=== PATIENT | male | born 1945 | race Caucasian/White ===

== ENCOUNTER 2024-03-17 11:30 | Outpatient (CLI) | payer MEDICARE | END 2024-03-17 23:59 | disposition critical access hospital (66) | LOC: EMS 11:30 | DX: R47.81 Slurred speech (principal); R29.810 Facial weakness; R53.1 Weakness | CPT/HCPCS: A0425; A0429 ==

== ENCOUNTER 2024-03-17 11:57 | Emergency (ER) | payer MEDICARE ==
--- NOTE | 2024-03-17 12:02 | ED Physician Documentation ---
PD HPI FOCAL NEURO - Stated complaint Stated Complaint: CODE STROKE - History obtained from History obtained from: Patient, EMS PD PAST MEDICAL HISTORY - Past Medical History Cardiovascular: None Respiratory: None Neuro: None - Allergies Allergies/Adverse Reactions: Allergies Allergy/AdvReac Type Severity Reaction Status Date / Time Sulfa (Sulfonamide Allergy Unknown Verified 03/17/24 12:23 Antibiotics) PD ED PE NORMAL - Vitals Vital signs reviewed: Yes - General General: Alert and oriented X 3, Well developed/nourished - HEENT HEENT: Atraumatic - Neck Neck: Supple, no meningeal sign, No adenopathy, No JVD - Cardiac Cardiac: RRR, No murmur - Respiratory Respiratory: No respiratory distress, Clear bilaterally - Derm Derm: Normal color, Warm and dry - Extremities Extremities: No tenderness to palpate, Normal ROM s pain, No edema NIHSS - Level of Consciousness Level of consciousness: (0) Alert, Keenly responsive LOC Questions: (0) Answers both Q's correct LOC Commands: (0) Performs both correctly - Gaze Best Gaze: (0) Normal - Visual Visual: (0) No loss - Facial Palsy Facial Palsy: (2) Partial paralysis - Motor Arms (both separate) Motor Arm (right): (0) No drift Motor Arm (left): (1) Drift - Motor Legs (both separate) Motor Leg (right): (0) No drift Motor Leg (left): (1) Drift - Limb Ataxia Limb Ataxia: (2) Present in 2 limbs - Sensory Sensory: (1) Lwpf-nr-sdkxnjtj loss - Best Language Best Language: (0) No aphasia - Dysarthria Dysarthria: (1) Lckv-gg-lghepxfd dysarthria - Extinction and Inattention (formally neg Extinction and inattention: (0) No abnormality - Total Score/Results Total Score/Result: 8 Results - Vitals Vitals: Vital Signs - 24 hr 03/17/24 03/17/24 03/17/24 12:15 12:45 12:52 Temperature 36 C L Heart Rate 64 55 L 55 L Respiratory 18 15 18 Rate Blood Pressure 148/74 H 147/89 H 161/83 H O2 Saturation 99 98 99 03/17/24 03/17/24 03/17/24 13:22 13:52 13:59 Temperature Heart Rate 65 71 70 Respiratory 18 20 Rate Blood Pressure 175/87 H 149/81 H 142/76 H O2 Saturation 99 98 96 03/17/24 03/17/24 03/17/24 14:09 14:14 14:18 Temperature Heart Rate 75 80 82 Respiratory 12 Rate Blood Pressure 146/72 H 151/67 H 150/76 H O2 Saturation 96 98 97 03/17/24 03/17/24 03/17/24 14:24 14:29 14:33 Temperature Heart Rate 83 90 96 Respiratory Rate Blood Pressure 153/76 H 157/72 H 156/75 H O2 Saturation 97 97 96 03/17/24 03/17/24 03/17/24 14:40 14:49 14:54 Temperature Heart Rate 88 91 105 H Respiratory 25 H Rate Blood Pressure 132/69 H 154/72 H 171/86 H O2 Saturation 7 L 96 93 Oxygen O2 Source Room air - EKG (time done) 12:25 EKG releavant findings:: EKG personally interpreted by author of this note. Relevant findings are: Rate: Rate (enter#) (58) Rhythm: NSR [place]: Normal, RAD Intervals: Normal MS QRS: Normal Ischemia: Normal ST segments. No: ST elevation c/w ischemia, ST depression - Labs Labs: Laboratory Tests 03/17/24 03/17/24 03/17/24 12:20 12:20 12:20 WBC 4.3 L RBC 4.01 L Hgb 12.1 L Hct 36.3 L MCV 90.5 MCH 30.2 MCHC 33.3 RDW 12.7 Plt Count 188 MPV 9.0 Neut # (Auto) 2.7 Lymph # (Auto) 0.9 L [place] # (Auto) 0.5 Eos # (Auto) 0.2 Baso # (Auto) 0.0 Absolute Nucleated RBC 0.00 Nucleated RBC % 0.0 ESR 7 PT 12.0 INR 1.1 Sodium Potassium Chloride Carbon Dioxide Anion Gap BUN Creatinine Estimated GFR (MDRD) Glucose POC Whole Bld Glucose Calcium Magnesium Total Bilirubin AST ALT Alkaline Phosphatase Total Protein Albumin Globulin Albumin/Globulin Ratio Lipase 03/17/24 03/17/24 12:20 12:32 WBC RBC Hgb Hct MCV MCH MCHC RDW Plt Count MPV Neut # (Auto) Lymph # (Auto) [place] # (Auto) Eos # (Auto) Baso # (Auto) Absolute Nucleated RBC Nucleated RBC % ESR PT INR Sodium 134 L Potassium 4.5 Chloride 103 Carbon Dioxide 25 Anion Gap 6.0 BUN 24 H Creatinine 1.2 Estimated GFR (MDRD) 59 L Glucose 104 POC Whole Bld Glucose 92 Calcium 9.3 Magnesium 1.7 Total Bilirubin 0.5 AST 18 ALT 16 Alkaline Phosphatase 40 L Total Protein 6.3 L Albumin 4.2 Globulin 2.1 Albumin/Globulin Ratio 2.0 Lipase 27 - Rads (name of study) head CT Relevant Findings:: Prelim report reviewed (acute ICH right basal ganglion), EMP independent interpretation of test head angio Relevant Findings:: Prelim report reviewed (no acute mass nor vascular deformity. Bleed as noted.), EMP independent interpretation of test PD Medical Decision Making - ED course Complexity details: reviewed results, re-evaluated patient (he remains alert and conversant. No change in neuro exam while in ED. Some increase in headache but not much. ), considered differential, d/w patient, d/w fitness sales consultant (Stroke Neurology, who defers to neurosurgery given bleed. For us to find placement. Talked with Neurosurg Mary with [facility], then Neuro metal trades instructor Dr. Sam Llamas, who accept [facility]. 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 He was still able to understand the conversation and converse back with normal content but the articulation was off due to the facial weakness. He tried standing and noticed his leg to feel weak as well. EMS was called and brought him here. On arrival as a code stroke we did a very brief examination and history and they went to CT scan. The CT scan was showing an acute hemorrhage in the right basal ganglia area. Angiogram was performed at the same time and subsequent reading did not show any obvious tumors, aneurysms, edema. I did talk with stroke neurology initially who said that being a hemorrhage, no medication interventions were needed such as tPA of course and obvious. Stroke neurology deferred to our facility to find transfer and placement with neurosurgery. The patient's initial blood pressure was 148/91. Heart rate was good. Initial advice was to keep blood pressure below 160. The blood pressure started to get a little higher to 160 and subsequently I did talk with neurosurgery from prof/[facility] who directed blood pressure below 140. On the patient was started on a nicardipine drip and will titrate it for systolic blood pressure between 110 and 140. The patient was given some pain medicine though had very minimal headache. Otherwise he remained with the same clinical exam and no worsening. I did give some tranexamic acid per literature from hemorrhagic stroke trials. Even though the literature suggests its minimally effective it still did not have harm. [facility] was able to accept the patient in I talked with Dr. Jb barrera who is the neuro ICU. He is accepting of transfer. The patient is subsequently transferred by airlift in stable condition. Most recent blood pressure was showing 148 systolic blood pressure. - Critical Care Time(min): 45 Time Includes: Direct patient care, Document care, Coordinate care, Medical consult, See progress note Data interpretation: Labs Procedures excluded from critical care time: EKG Departure - Departure Disposition: 02 Transfer Acute Care Hosp Clinical Impression: Unilateral weakness, Intracranial hemorrhage Condition: Serious Record reviewed to determine appropriate education?: Yes Forms: PCP List Discharge Date/Time: 03/17/24 15:10
--- NOTE | 2024-03-17 12:16 | CT Report ---
PROCEDURE: Head W/O Stroke Protocol INDICATIONS: left face/ext weakness abrupt 11 am TECHNIQUE: Noncontrast 4.5 mm thick angled axial sections acquired from the foramen magnum to the vertex, with c oronal reformats. For radiation dose reduction, the following was used: automated exposure control, adjustment of mA and/or kV according to patient size. COMPARISON: None. FINDINGS: Image quality: Excellent. CSF spaces: Basal cisterns are patent. No extra-axial fluid collections. Ventricles are normal in size and shape. Brain: No midline shift. Right basal ganglia hemorrhage measuring 2.4 x 3.3 x 1.4 cm. Very mild mass effect on the frontal horn of the right lateral ventricle without midline shift. Age-related volume loss and very mild, age-appropriate small vessel ischemic change. Intracranial atherosclerotic calcif ications of the carotids. Orozco-white matter interface is normal. Skull and face: Calvarium and visualized facial bones are intact, without suspicious lesions. Sinuses: Visualized sinuses and mastoids are clear. IMPRESSION: Right basal ganglia hemorrhage, consistent with hypertensive hemorrhage versus hemorrhagic lacunar in farction. Above discussed with Atul Chavez MD at the time of dictation on 03/17/2024 at 1209 hours. This study fulfills neurological imaging criteria for inclusion or exclusion of acute stroke therapie s based on available published neurological imaging guidelines. Reviewed by: Rowdy Flores MD on 03/17/2024 12:14 PM PDT Approved by: Rowdy Flores MD on 03/17/2024 12:14 PM PDT Station ID: [id number]
[2024-03-17] MEDS ORDERED: iohexoL-300 100 ML VIAL ONE (12:19)
--- NOTE | 2024-03-17 12:20 | CT Report ---
PROCEDURE: Angio Head/Neck INDICATIONS: abrupt left weakness 11 am TECHNIQUE: After the administration of intravenous contrast, 1 mm thick sections acquired from the aortic arch t hrough the [place]. 3-dimensional krjvhbu-whjxoojlo-qmnxchjzkv (MIP) and/or volume renderin g reformats were acquired of the central intracranial vasculature and neck separately. For radiation dose reduction, the following was used: automated exposure control, adjustment of mA and/or kV acco rding to patient size. CONTRAST: 80ml [id number] COMPARISON: CT head from the same time. FINDINGS: Image quality: Diagnostic. HEAD CT: CSF Spaces: Basal cisterns are patent. No extra-axial fluid collections. Ventricles are normal in size and shape. Brain: Accompanying CT head demonstrates hemorrhagic infarct of the right basal ganglia. Skull and face: Calvarium and visualized facial bones appear intact, without suspicious lesions. Sinuses: Visualized sinuses and mastoids are clear. HEAD CT ANGIOGRAPHY: Anterior circulation: Intracranial internal carotid arteries are normal in size and flow. The flow within the paired anterior cerebral arteries is normal and symmetric. The flow within the middle cer ebral arteries is normal and symmetric. The anterior communicating artery is seen. No aneurysms are seen. Posterior circulation: Visualized portions of the vertebral arteries demonstrate normal caliber, and join to form a normal appearing basilar artery. Flow within the posterior cerebral arteries is norm al and symmetric. No aneurysms are seen. NECK CT ANGIOGRAPHY: Carotid system: The great vessels demonstrate a conventional anatomy as they arise from the aortic a rch. The origins of the common carotid arteries appear patent. The common carotid arteries demonstr ate normal caliber and courses. The bifurcation regions are both widely patent. Mild bilateral proximal internal carotid artery stenosis, nonflow limiting, much less than 50%. Posterior circulation: The origins of the vertebral arteries both appear widely patent. The more wen perior extracranial portions of both vertebral arteries also demonstrate normal courses and calibers. They join to form a normal appearing basilar artery. Soft tissues: Visualized neck soft tissues demonstrate no suspicious abnormalities. Bones: No suspicious bony lesions. Visualized cervical spine appears normally aligned. IMPRESSION: No significant intracranial arterial abnormality is seen. No significant abnormality is seen within the arteries of the neck. Right basal ganglia hemorrhage consistent with hemorrhagic infarct versus hypertensive hemorrhage. The estimate of stenosis included in the report of the imaging study was calculated using the NASCET method Reviewed by: Rowdy Flores MD on 03/17/2024 12:19 PM PDT Approved by: Rowdy Flores MD on 03/17/2024 12:19 PM PDT Station ID: [id number]
[2024-03-17 12:25] LABS: BASOPHILS % (AUTO) 0.7 %; EOSINOPHILS # (AUTO) 0.2 10^3/uL (0.0-0.7); EOSINOPHILS % (AUTO) 4.4 %; HCT - HEMATOCRIT 36.3 % (42.0-52.0); HGB - HEMOGLOBIN 12.1 g/dL (14.0-18.0); LYMPHOCYTES # (AUTO) 0.9 10^3/uL (1.5-3.5); LYMPHOCYTES % (AUTO) 21.1 %; MEAN CORPUSCULAR HEMOGLOBIN 30.2 pg (27.0-31.0); MEAN CORPUSCULAR HGB CONC 33.3 g/dL (32.0-36.0); MEAN CORPUSCULAR VOLUME 90.5 fL (80.0-94.0); MONOCYTES # (AUTO) 0.5 10^3/uL (0.0-1.0); MONOCYTES % (AUTO) 11.1 %; NEUTROPHILS # (AUTO) 2.7 10^3/uL (1.5-6.6); NEUTROPHILS % (AUTO) 62.5 %; PLT - PLATELET COUNT 188 10^3/uL (130-450); RED BLOOD COUNT 4.01 10^6/uL (4.70-6.10); RED CELL DISTRIBUTION WIDTH 12.7 % (12.0-15.0); WHITE BLOOD COUNT 4.3 x10^3/uL (4.8-10.8)
[2024-03-17 12:37] LABS: INR 1.1 (0.8-1.2)
[2024-03-17] MEDS: SODIUM CHLORIDE 0.9% 1,000 ML IV STA (12:40)
[2024-03-17 12:41] LABS: ALBUMIN 4.2 g/dL (3.2-5.5); BILIRUBIN,TOTAL 0.5 mg/dL (0.2-1.0); CALCIUM 9.3 mg/dL (8.5-10.3); CREATININE 1.2 mg/dL (0.6-1.3); MAGNESIUM 1.7 mg/dL (1.7-2.3); POTASSIUM 4.5 mmol/L (3.5-4.5); TOTAL PROTEIN 6.3 g/dL (6.4-8.9)
[2024-03-17] MEDS: LABETALOL 20 MG/4 ML SYRINGE IVP STA (12:49)
[2024-03-17] MEDS: TRANEXAMIC ACID IN NACL 1,000 MG/100 ML BAG IV ONE (13:16)
[2024-03-17] MEDS: TRANEXAMIC ACID 1,000 MG in SODIUM CHLORIDE 0.9% 100ML 100 ML IV STA (13:18)
[2024-03-17] MEDS: NICARDIPINE HCL 25 MG in SODIUM CHLORIDE 0.9% 240 ML IV STA (13:26)
[2024-03-17] MEDS: iohexoL-300 100 ML VIAL IVP ONE (16:35)
[2024-03-17 17:17] VITALS: BP 171/86; O2SAT 93
== END 2024-03-17 15:10 | disposition short-term general hospital (02) ==
LOC: EDUNIT# → ED 11:57
DX: I61.0 Nontraumatic intracerebral hemorrhage in hemisphere, subcortical (principal); I10 Essential (primary) hypertension; G81.91 Hemiplegia, unspecified affecting right dominant side; R29.708 NIHSS score 8
CPT/HCPCS: 36415; 70450; 70496; 70498; 80053; 83690; 83735; 85025; 85610; 85651; 93005; 96365; 96375; 99291; Q9967